=== PATIENT | female | born 1960 | race Two or more races ===

== ENCOUNTER 2018-09-26 10:56 | Emergency (ER) | payer MEDICAID, OTHER ==
[~2018-09-26] VITALS: Ht 165.1 cm; Wt 99.3 kg
[2018-09-26] MEDS ORDERED: SODIUM CHLORIDE 0.9% 1,000 ML IV ONE (11:24)
[2018-09-26] MEDS ORDERED: LORazepam 2MG/ML-1ML VIAL IV ONE (11:30)
[2018-09-26 11:45] LABS: Basophils # (auto) 0 uL; Basophils % (auto) 0.8 % (0.0-2.0); Eosinophils # (auto) 0 uL; Hematocrit 42.4 % (36.0-46.0); Hemoglobin 13.8 g/dL (12.2-16.2); Lymphocytes # (auto) 1.2 uL; Lymphocytes % (auto) 26.6 % (10.0-50.0); Mean Corpuscular Hemoglobin 29.4 pg (28.0-32.0); Mean Corpuscular Hgb Conc. 32.5 g/dL (32.0-36.0); Mean Corpuscular Volume 90.5 fL (80.0-100.0); Monocytes # (auto) 0.3 uL; Monocytes % (auto) 6.6 % (0.0-12.0); Platelet Count (auto) 224 10^3/uL (140-450); Red Blood Cells 4.69 10^6/uL (4.0-5.20); White Blood Cell 4.5 10^3/uL (4.4-10.8)
[2018-09-26 11:56] LABS: Urine Bacteria FEW /hpf (None Seen); Urine Blood Negative /uL (Negative); Urine Mucus FEW (None Seen); Urine Specific Gravity 1.015 (1.001-1.035); Urine WBC 1 /hpf (0 - 5)
[2018-09-26 11:57] LABS: Alanine Aminotransferase 34 U/L (13-56); Albumin 3.8 g/dL (3.4-5.0); Anion Gap 7 (5-15); Aspartate Aminotransferase 21 U/L (15-37); BUN/Creatinine Ratio 12.5; Blood Urea Nitrogen 8 mg/dL (7-18); Calcium 8.6 mg/dL (8.5-10.1); Carbon Dioxide 28 mmol/L (21-32); Chloride 104 mmol/L (98-107); GFR African American 123 mL/min; GFR Non-African American 102 mL/min; Glucose 118 mg/dL (74-106); Magnesium 2.4 mg/dL (1.6-2.6); Sodium 139 mmol/L (136-145)
[2018-09-26 12:02] LABS: Alkaline Phosphatase 120 U/L (45-117); Bilirubin, Total 0.4 mg/dL (0.2-1.0); Total Protein 8.4 g/dL (6.4-8.2)
[2018-09-26 12:29] VITALS: BP 149/96
== END 2018-09-26 12:28 | disposition home or self-care (01) ==
LOC: ER 11:00
DX: R42 Dizziness and giddiness (principal); R11.2 Nausea with vomiting, unspecified; R10.9 Unspecified abdominal pain
CPT/HCPCS: 36415; 70450; 80053; 81001; 83735; 84484; 85025; 93005; 94761; 96361; 96374; 99285; J2060

== ENCOUNTER 2021-07-12 01:45 | Emergency (ER) | payer MEDICAID ==
[~2021-07-12] VITALS: Ht 165.1 cm; Wt 90.7 kg
[2021-07-12] MEDS ORDERED: ACETAMINOPHEN 500 MG TAB PO ONE (05:00)
[2021-07-12 05:14] VITALS: BP 145/70
[2021-07-12] MEDS ORDERED: KETOROLAC TROMETH 60MG/2ML VIAL IM ONE (05:30)
== END 2021-07-12 06:53 | disposition home or self-care (01) ==
LOC: ER 01:46
DX: S83.92XA Sprain of unspecified site of left knee, initial encounter (principal); M17.12 Unilateral primary osteoarthritis, left knee; E66.9 Obesity, unspecified; M25.462 Effusion, left knee; Z68.33 Body mass index [BMI] 33.0-33.9, adult; X58.XXXA Exposure to other specified factors, initial encounter; Y93.89 Activity, other specified; Y92.89 Other specified places as the place of occurrence of the external cause; Y99.8 Other external cause status
CPT/HCPCS: 29505; 73562; 96372; 99283; J1885

== ENCOUNTER 2023-06-17 21:46 | Emergency (ER) | payer MEDICAID ==
[~2023-06-17] VITALS: Ht 165.1 cm; Wt 99.7 kg
[2023-06-17 22:05] VITALS: BP 140/69; PULSE 70; RESP 16; TEMP 98.3; O2SAT 96
[2023-06-18] MEDS ORDERED: TRAM50TA2 PO (03:11)
[2023-06-18] MEDS ORDERED: ONDANSETRON ODT 4 MG TAB PO ONE (03:15)
[2023-06-18] MEDS ORDERED: HYDROcodone-ACET 5/325MG TAB PO ONE (03:15)
== END 2023-06-18 03:35 | disposition home or self-care (01) ==
LOC: ER 21:46
DX: S83.92XA Sprain of unspecified site of left knee, initial encounter (principal); S83.91XA Sprain of unspecified site of right knee, initial encounter; W01.0XXA Fall on same level from slipping, tripping and stumbling without subsequent striking against object, initial encounter; Y93.89 Activity, other specified; Y92.89 Other specified places as the place of occurrence of the external cause; Y99.8 Other external cause status
CPT/HCPCS: 29505; 73562; 99283; Q0162

== ENCOUNTER 2023-07-05 20:03 | Emergency (ER) | payer MEDICAID ==
[~2023-07-05] VITALS: Ht 162.6 cm; Wt 99.1 kg
[~2023-07-05 20:03] MED LIST: TRAM50TA2 PO
[2023-07-05 21:08] LABS: Albumin 3.6 g/dL (3.4-5.0); Calcium 8.9 mg/dL (8.5-10.1); Magnesium 2.5 mg/dL (1.6-2.6); Potassium 4.3 mmol/L (3.5-5.1)
[2023-07-05 21:12] LABS: BUN/Creatinine Ratio 10.5 (10.0-20.0); Bilirubin, Total 0.5 mg/dL (0.2-1.0); Total Protein 7.5 g/dL (6.4-8.2)
[2023-07-05 21:15] LABS: Basophils # (auto) 0 10 ^3/uL (0-0.2); Basophils % (auto) 0.6 % (0.0-2.0); Eosinophils # (auto) 0 10 ^3/uL (0-0.8); Eosinophils % (auto) 0.2 % (0.0-7.0); Hematocrit 41.3 % (36.0-46.0); Hemoglobin 13.7 g/dL (12.2-16.2); Lymphocytes % (auto) 17.1 % (10.0-50.0); Mean Corpuscular Hemoglobin 29.7 pg (28.0-32.0); Mean Corpuscular Hgb Conc. 33.2 g/dL (32.0-36.0); Mean Corpuscular Volume 89.6 fL (80.0-100.0); Monocytes # (auto) 0.3 10 ^3/uL (0-1.3); Monocytes % (auto) 4.4 % (0.0-12.0); Neutrophils # (auto) 4.6 10 ^3/uL (1.6-8.6); Neutrophils % (auto) 77.7 % (37.0-80.0); Nucleated Red Blood Cells % 0.2 %; Red Blood Cells 4.61 10^6/uL (4.0-5.20); Red Cell Distribution Width 13.5 % (11.8-14.3)
[2023-07-05 21:30] LABS: INR 0.97 (0.9-1.15); Partial Thromboplastin Time 22.1 SEC (24.5-34.5); Prothrombin Time 10.2 sec (9.3-11.8)
[2023-07-05] MEDS ORDERED: MECLIZINE HCL 25 MG TAB PO ONE (21:30)
[2023-07-05] MEDS ORDERED: HYDROcodone-ACET 10/325MG TAB PO ONE (21:30)
[2023-07-05] MEDS ORDERED: ONDANSETRON HCL 4 MG/2 ML VIAL IM ONE (21:30)
[2023-07-05 21:32] LABS: COVID19 ANTIGEN SOFIA FIA NEGATIVE (NEGATIVE)
[2023-07-05 21:33] LABS: Rapid Influenza A Negative (Negative); Rapid Influenza B Negative (Negative)
[2023-07-05 21:58] VITALS: BP 169/82; RESP 18; TEMP 98.3; O2SAT 96
[2023-07-05 23:19] VITALS: PULSE 64
[2023-07-05] MEDS ORDERED: LIDOCAINE VISCOUS 2% 15ML UD MT ONE (23:45)
[2023-07-05] MEDS ORDERED: MAALOX PLUS or MAALOX 30 ML PO ONE (23:45)
[2023-07-06] MEDS ORDERED: ZOFR4T PO (00:21)
[2023-07-06] MEDS ORDERED: MECL1TAB42 PO (00:21)
[2023-07-06] MEDS ORDERED: DICY10CA PO (00:21)
== END 2023-07-06 00:30 | disposition home or self-care (01) ==
LOC: ER 20:03
DX: K52.9 Noninfective gastroenteritis and colitis, unspecified (principal); K21.9 Gastro-esophageal reflux disease without esophagitis; M19.90 Unspecified osteoarthritis, unspecified site; Z90.49 Acquired absence of other specified parts of digestive tract; Z79.899 Other long term (current) drug therapy; Z20.822 Contact with and (suspected) exposure to COVID-19
CPT/HCPCS: 36415; 71045; 80053; 83735; 83880; 84484; 85025; 85610; 85730; 87426; 87804; 93005; 96372; 99285; J2405; J8597